=== PATIENT | female | born 1985 | race Hispanic/Latino ===

== ENCOUNTER 2020-03-12 10:17 | Inpatient (IN) | payer MEDICAID ==
[2020-03-12] MEDS ORDERED: LACTATED RINGERS 1,000 ML IV ONE (11:30)
[2020-03-12] MEDS ORDERED: LIDOCAINE (2%) 20 MG/1 ML VIAL 20 ML MDV INFILTRATI ONE (13:04)
[2020-03-12] MEDS ORDERED: MINERAL OIL 30 ML ORAL LIQD PO PRN (13:04)
[2020-03-12] MEDS ORDERED: TERBUTALINE 1 MG/1 ML INJ IVP PRN (13:04)
[2020-03-12] MEDS ORDERED: ePHEDrine SULFATE 50 MG/1 ML INJ IV PRN (13:04)
[2020-03-12] MEDS ORDERED: TERBUTALINE 1 MG/1 ML INJ SUB-Q PRN (13:04)
[2020-03-12 13:32] LABS: Hematocrit 27.8 % (30.3-42.9); Hemoglobin 9.4 gm/dl (10.1-14.3); Mean Corpuscular HGB Conc 34 % (30-34); Mean Corpuscular Volume 78 fl (79-97); Platelet Count 311 K/mm3 (140-440); Red Blood Count 3.58 M/mm3 (3.65-5.03); Red Cell Distribution Width 17.4 % (13.2-15.2)
[2020-03-12] MEDS ORDERED: OXYTOCIN 20 UNIT/1000ML DRIP 20 UNITS/1,000 ML BAG IV SCH (14:00)
[2020-03-12] MEDS ORDERED: OXYTOCIN DRIP 30 UNITS/500 ML BAG IV SCH (14:00)
[2020-03-12] MEDS: LACTATED RINGERS 1,000 ML IV SCH ×3 (14:00→19:07)
[2020-03-12] MEDS ORDERED: DEXMEDETOMIDINE 200 MCG/2 ML VIAL IV ONE (14:35)
--- NOTE | 2020-03-12 15:02 | Anesthesia Consultation ---
Anesthesia Consult and Med Hx Date of service: 03/12/20 - Airway Anesthetic Teeth Evaluation: Good ROM Head & Neck: Adequate Mental/Hyoid Distance: Adequate Mallampati Class: Class III Intubation Access Assessment: Probably Good - Pulmonary Exam CTA: Yes - Cardiac Exam Cardiac Exam: RRR - Pre-Operative Health Status ASA Pre-Surgery Classification: ASA2 Proposed Anesthetic Plan: Epidural, Spinal - Pulmonary Hx Smoking: No Hx Asthma: No Hx Sleep Apnea: No - Cardiovascular System Hx Hypertension: Yes (Prior to on baby asprin during the pregnacy) - Central Nervous System Hx Seizures: No Hx Psychiatric Problems: No - Gastrointestinal Hx Gastroesophageal Reflux Disease: No - Endocrine Hx Renal Disease: No Hx Insulin Dependent Diabetes: No Hx Non-Insulin Dependent Diabetes: No Hx Hypothyroidism: No Hx Hyperthyroidism: No - Hematic Hx Anemia: No Hx Sickle Cell Disease: No - Other Systems Hx Alcohol Use: No
[2020-03-12] MEDS ORDERED: NalbUPHINE 10 MG/1 ML INJ IV PRN (15:04)
[2020-03-12] MEDS ORDERED: diphenhydrAMINE 50 MG/ML VIAL IV PRN (15:04)
[2020-03-12] MEDS ORDERED: NALOXONE 2 MG/2 ML INJ IV PRN (15:04)
[2020-03-12] MEDS ORDERED: ONDANSETRON 4 MG/2 ML INJ IV PRN (15:04)
--- NOTE | 2020-03-12 15:04 | Progress Note ---
Labor Epidural - Labor Epidural Start Time: 14:37 Stop Time: 14:50 Performed by:: MARY ANN VERMA Procedure: Patient is requesting combined spinal epidural for labor and pain. H&P, labs were reviewed. All questions and concerns were answered. Informed consent was obtained. Timeout performed. Patient in sitting position on side of bed. Sterile prep and drape was performed. [3] mL 1% lidocaine skin wheal at L [3]-L [4]. 18-gauge Touhy epidural needle advanced to [id number] using air technique, [7.5cm]. 27-gauge spinal needle advanced [clear positive free- flowing] CSF. spinal dose of [Marcaine 3.75mg]. Epidural catheter advanced to [13] cm. Transient parathesia on R, [Negative] Aspiration, [negative] test dose. Sterile dressing applied. Patient tolerated procedure well.
[2020-03-12] MEDS ORDERED: fentaNYL-BUPIV 2 MCG/ML-0.125% 200 MCG/100 ML BAG EPIDURAL SCH (16:00)
--- NOTE | 2020-03-12 16:25 | History and Physical Report ---
History of Present Illness Date of examination: 03/12/20 Date of admission: 03/12/20 13:59 Chief complaint: I'm having contractions History of present illness: Pt is a 34 year old who presents with regular contractions at 39.1 weeks with EDC 03/18/20. Pt has had an uncomplicated course. She is GBS negative. Her labs are otherwise normal. Pt has a history of chronic hypertension but she has had no issues with blood pressure this . Past History Past Medical History: hypertension Past Surgical History: cholecystectomy Family/Genetic History: hypertension Social history: - Obstetrical History Expected Date of Delivery: 03/18/20 Actual Gestation: 39 Week(s) 1 Day(s) : 4 Para: 3 Number of Living Children: 3 Medications and Allergies Allergies Allergy/AdvReac Type Severity Reaction Status Date / Time latex Allergy Hives Verified 03/12/20 10:45 Active Meds: Active Medications Diphenhydramine HCl (Benadryl) 12.5 mg IV Q2H PRN PRN Reason: Itching Ephedrine Sulfate (Ephedrine Sulfate) 10 mg IV Q2M PRN PRN Reason: Hypotension Oxytocin/Sodium Chloride (Pitocin/Ns 20 Unit/1000ml Drip) 20 units in 1,000 mls @ 125 mls/hr IV DIRECT PARISH Oxytocin/Sodium Chloride (Pitocin/Ns 30 Unit/500ml) 30 units in 500 mls @ 1 mls/hr IV TITR PARISH; Protocol Lactated Ringer's (Lactated Ringers) 1,000 mls @ 125 mls/hr IV DIRECT PARISH Fentanyl/Bupivacaine/Sodium Chlor (Fentanyl-Bupiv 2 Mcg/Ml-0.125%) 200 mcg in 100 mls @ 12 mls/hr EPIDURAL TITR PARISH; Protocol Mineral Oil (Mineral Oil) 30 ml PO QHS PRN PRN Reason: Constipation Nalbuphine HCl (Nalbuphine) 2.5 mg IV Q2H PRN PRN Reason: Itching Naloxone HCl (Naloxone) 0.2 mg IV Q5M PRN PRN Reason: Respiratory sedation Ondansetron HCl (Zofran) 4 mg IV Q8H PRN PRN Reason: Nausea And Vomiting Terbutaline Sulfate (Brethine) 0.25 mg SUB-Q ONCE PRN PRN Reason: Hyperstimulation/Hypertonicity Terbutaline Sulfate (Brethine) 0.25 mg IVP ONCE PRN PRN Reason: Hyperstimulation/Hypertonicity Review of Systems All systems: negative Constitutional: fatigue Genitourinary: vaginal bleeding, contractions - Vital Signs Vital signs: Vital Signs Pulse Pulse Ox 102 H 100 03/12/20 14:29 03/12/20 14:29 Temp Pulse Resp BP Pulse Ox 98.2 F 86 22 102/53 98 03/12/20 14:34 03/12/20 16:14 03/12/20 14:34 03/12/20 16:14 03/12/20 16:11 - Physical Exam Breasts: Positive: deferred Cardiovascular: Regular rate, Normal S1, Normal S2 Lungs: Positive: Clear to auscultation, Normal air movement Abdomen: Positive: normal appearance, soft, normal bowel sounds. Negative: distention, tenderness Genitourinary (Female): Positive: normal external genitalia, normal perenium Vulva: both: normal Vagina: Positive: normal moisture. Negative: discharge Cervix: Negative: lesion, discharge Uterus: Positive: normal size, normal contour Adnexa: both: normal Anus/Rectum: Positive: normal perianal skin, heme negative. Negative: rectal mass, hemorrhoids Extremities: Deep Tendon Reflex Grade: Normal +2 - Obstetrical Cervical Dilatation: 4 Cervical Effacement Percentage: 80 station: -2 Uterine Contraction Frequency (min): 4 Uterine Contraction Pattern: Regular Uterine Tone Measurement Phase: Contraction Uterine Contraction Intensity: Moderate Results Result Diagrams: 03/12/20 13:00 Abnormal lab results 03/12/20 Range/Units 13:00 WBC 11.2 H (4.5-11.0) K/mm3 RBC 3.58 L (3.65-5.03) M/mm3 Hgb 9.4 L (10.1-14.3) gm/dl Hct 27.8 L (30.3-42.9) % MCV 78 L (79-97) fl MCH 26 L (28-32) pg RDW 17.4 H (13.2-15.2) % All other labs normal. Assessment and Plan IUP at 39.1 weeks in labor. Admit for labor. AROM when patient comfortable. Pt may have epidural. Anticipate .
[2020-03-12] MEDS ORDERED: BUPIVACAINE/PF (0.25%) 2.5 MG/ML 10 ML VIAL INFILTRATI ONE (17:15)
[2020-03-12] MEDS ORDERED: ACETAMINOPHEN 325 MG TAB PO ONE (21:14)
--- NOTE | 2020-03-12 22:46 | Procedure Note ---
OB Delivery Note - Delivery Date of Delivery: 03/12/20 Surgeon: ANA MILLAN - Vaginal Delivery presentation: vertex Delivery position: OA Intrapartum events: none Delivery augmentation: rupture of membranes, pitocin Delivery monitor: external FHT, external uterine Route of delivery: Delivery placenta: spontaneous Delivery cord: 3 umbilical vessels Delivery laceration: 2nd degree Delivery repair: vicryl Anesthesia: epidural Delivery comments: Viable female delivered over intact perineum without nuchal. Mouth and nose suctioned on field. Placenta delivered spontaneously and intact with 3vc. Laceration repaired with 2.0 vicryl. Pt tolerated procedure well. - Infant A at 1 minute: 8 at 5 minutes: 9 Infant Gender: Female (7 pounds 12 ounces)
[2020-03-13] MEDS ORDERED: LANOLIN/ZINC/DIMETHICONE (LANSINOH) 7 GM TP PRN (02:31)
[2020-03-13] MEDS ORDERED: ONDANSETRON 4 MG/2 ML INJ IV PRN (02:31)
[2020-03-13] MEDS ORDERED: MAGNESIUM HYDROXIDE (MOM) ORAL LIQD UDC PO PRN (02:31)
[2020-03-13] MEDS ORDERED: WITCH HAZEL/ GLYCERIN PAD TP PRN (02:31)
[2020-03-13] MEDS ORDERED: PROMETHAZINE 25 MG TAB PO PRN (02:31)
[2020-03-13] MEDS ORDERED: diphenhydrAMINE 25 MG CAP PO PRN (02:31)
[2020-03-13] MEDS ORDERED: ACETAMINOPHEN 325 MG TAB PO PRN (02:31)
[2020-03-13] MEDS: IBUPROFEN 600 MG TAB PO SCH ×4 (03:01→22:24)
[2020-03-13] MEDS: HYDROcodone/ACETAMINOPHEN 5-325 MG TAB PO PRN ×3 (05:00→20:40)
[2020-03-13] MEDS: DOCUSATE SODIUM 100 MG CAP PO SCH ×2 (09:59→22:24)
[2020-03-13] MEDS: PRENATAL VIT27-FE FUMARATE-FOLIC ACID VIT TAB PO SCH (09:59)
--- NOTE | 2020-03-13 12:12 | Post Anesthesia Evaluation ---
- Post Anesthesia Evaluation Patient Participated: Yes Airway Patent: Yes Stable Respiratory Function: Yes Nausea/Vomiting: No Temp > 96.8F: Yes Pain Manageable: Yes Adequeate Hydration: Yes Anesthesia Complications: No Block Receding Appropriately: Yes Patient on Ventilator: No
[2020-03-13 13:24] LABS: Hematocrit 23.9 % (30.3-42.9); Hemoglobin 7.6 gm/dl (10.1-14.3)
[2020-03-13] MEDS: FERROUS SULFATE 325 MG TAB PO SCH ×2 (16:10→22:22)
[2020-03-14] MEDS: IBUPROFEN 600 MG TAB PO SCH ×2 (05:54→11:45)
[2020-03-14] MEDS ORDERED: DIPHtheria,PERTUSSIS(ACELL),TETANUS VACCINE/PF 0.5 ML VIAL IM ONE (06:00)
[2020-03-14] MEDS: HYDROcodone/ACETAMINOPHEN 5-325 MG TAB PO PRN (08:21)
--- NOTE | 2020-03-14 09:12 | Progress Note ---
Subjective - Subjective Date of service: 03/14/20 Interval history: Pt is a 34 year old who presents with regular contractions at 39.1 weeks with EDC 03/18/20. Pt has had an uncomplicated course. She is GBS negative. Her labs are otherwise normal. Pt has a history of chronic hypert ension but she has had no issues with blood pressure this . Patient reports: appetite normal, voiding normally, pain well controlled, ambulating normally : doing well Objective - Vital Signs Latest vital signs: Vital Signs Temp Pulse Resp BP BP Pulse Ox 03/14/20 01:56 97.9 F 78 18 112/72 95 03/13/20 15:45 97.5 F L 103 H 20 126/75 03/13/20 12:47 97.8 F 88 20 115/51 Intake and Output 03/13/20 03/14/20 03/14/20 22:59 06:59 14:59 Intake Total 600 120 Balance 600 120 Intake: Oral 120 Intake, Free Water 480 120 Other: Total, Intake Amount 120 # Voids Indwelling Catheter 2 Void 1 1 - Labs Labs: Abnormal lab results 03/13/20 Range/Units 13:11 Hgb 7.6 L (10.1-14.3) gm/dl Hct 23.9 L (30.3-42.9) %
--- NOTE | 2020-03-14 09:14 | Discharge Summary ---
Providers - Providers Date of Admission: 03/12/20 13:59 Date of discharge: 03/14/20 Attending physician: ANA MILLAN Primary care physician: [employer]ER Hospitalization Reason for admission: active labor Delivery: Episiotomy: none Laceration: 2nd degree Other procedures: none complications: none Discharge diagnosis: IUP at term delivered baby: female Hospital course: unremarkable Condition at discharge: Good Disposition: DC-01 TO HOME OR SELFCARE Plan - Discharge Medications Prescriptions: Ferrous Sulfate [Feosol 325 MG tab] 325 mg PO BID #60 tablet Ibuprofen [Motrin] 800 mg PO Q8HR PRN #40 tablet PRN Reason: Pain, Moderate (4-6) HYDROcodone/APAP 5-325 [[place] 5/325] 1 each PO Q6HR PRN #20 tablet PRN Reason: Pain - Provider Discharge Summary Activity: routine, no sex for 6 weeks, no heavy lifting 4 weeks, no strenuous exercise Diet: routine Instructions: routine Additional instructions: [] Smoking cessation referral if applicable(refer to patient education folder for contact #) [] Refer to [facility] Booklet Call your doctor immediately for: * Fever > 100.5 * Heavy vaginal bleeding ( >1 pad per hour) * Severe persistent headache * Shortness of breath * Reddened, hot, painful area to leg or breast * Drainage or odor from incision. * Keep incision clean and dry at all times and follow doctor's instructions regarding bathing/showering - Follow up plan Follow up: ANA MILLAN MD [Staff Physician] - 6 Weeks
[2020-03-14] MEDS: FERROUS SULFATE 325 MG TAB PO SCH (11:13)
[2020-03-14] MEDS: DOCUSATE SODIUM 100 MG CAP PO SCH (11:13)
[2020-03-14] MEDS: PRENATAL VIT27-FE FUMARATE-FOLIC ACID VIT TAB PO SCH (11:14)
[2020-03-14 13:49] VITALS: BP 120/64
== END 2020-03-14 14:24 | disposition home or self-care (01) | DRG 774 ==
LOC: TRG 10:17 → LD 13:59 → OB 03-13 02:27
PROVIDERS: ADMIT Obstetrics & Gynecology; ATTEND Obstetrics & Gynecology
PROC: 10E0XZZ Delivery of Products of Conception, External Approach (ICD-10-PCS; principal; 2020-03-12)
PROC: 0KQM0ZZ Repair Perineum Muscle, Open Approach (ICD-10-PCS; 2020-03-12)
PROC: 3E0R3BZ Introduction of Anesthetic Agent into Spinal Canal, Percutaneous Approach (ICD-10-PCS; 2020-03-12)
PROC: 00HU33Z Insertion of Infusion Device into Spinal Canal, Percutaneous Approach (ICD-10-PCS; 2020-03-12)
PROC: 3E0234Z Introduction of Serum, Toxoid and Vaccine into Muscle, Percutaneous Approach (ICD-10-PCS; 2020-03-14)
DX: O10.92 Unspecified pre-existing hypertension complicating childbirth (principal); O70.1 Second degree perineal laceration during delivery; Z37.0 Single live birth; Z3A.39 39 weeks gestation of pregnancy; Z90.49 Acquired absence of other specified parts of digestive tract
CPT/HCPCS: 36415; 85014; 85018; 85027; 86850; 86900; 86901; G0378; J2405; J2590; J3490; J7120

== ENCOUNTER 2021-06-07 17:46 | Inpatient (IN) | payer MEDICAID ==
[~2021-06-07 17:46] MED LIST: NALOXONE 2 MG/2 ML INJ IV PRN
[2021-06-07] MEDS ORDERED: fentaNYL 100 MCG/2 ML INJ IV PRN (18:43)
[2021-06-07] MEDS ORDERED: NalbUPHINE 10 MG/1 ML INJ IV PRN (18:43)
[2021-06-07] MEDS ORDERED: miSOPROStol 200 MCG TAB PR PRN (18:43)
[2021-06-07] MEDS ORDERED: CARBOPROST TROMETHAMINE 250 MCG/1 ML INJ IM PRN (18:43)
[2021-06-07] MEDS ORDERED: OXYTOCIN 10 UNIT/1 ML INJ IM PRN (18:43)
[2021-06-07] MEDS ORDERED: LOPERAMIDE 2 MG CAP PO PRN (18:43)
[2021-06-07] MEDS ORDERED: METHYLERGONOVINE MALEATE 0.2 MG/ML VIAL IM PRN (18:43)
[2021-06-07] MEDS ORDERED: MINERAL OIL 30 ML ORAL LIQD PO PRN (18:43)
[2021-06-07] MEDS ORDERED: BUTORPHANOL 2 MG/1 ML INJ IV PRN ×2 (18:43)
[2021-06-07] MEDS ORDERED: TERBUTALINE 1 MG/1 ML INJ SUB-Q PRN (18:43)
[2021-06-07] MEDS ORDERED: LIDOCAINE (2%) 20 MG/1 ML VIAL 20 ML MDV INFILTRATI ONE (18:43)
[2021-06-07] MEDS ORDERED: ONDANSETRON 4 MG/2 ML INJ IV PRN (18:43)
[2021-06-07] MEDS ORDERED: OXYTOCIN DRIP 30 UNITS/500 ML BAG IV SCH ×2 (19:00)
[2021-06-07 19:02] LABS: Hematocrit 36.5 % (30.3-42.9); Hemoglobin 12.7 gm/dl (10.1-14.3); Mean Corpuscular HGB Conc 35 % (30-34); Mean Corpuscular Volume 96 fl (79-97); Platelet Count 237 K/mm3 (140-440); Red Blood Count 3.79 M/mm3 (3.65-5.03); Red Cell Distribution Width 14.1 % (13.2-15.2)
[2021-06-07] MEDS: LACTATED RINGERS 1,000 ML IV SCH ×3 (19:56→22:01)
--- NOTE | 2021-06-07 20:22 | History and Physical Report ---
History of Present Illness Date of examination: 06/07/21 Date of admission: 06/07/21 17:46 Chief complaint: I am here to be induced History of present illness: Patient is a 35-year-old 5 para 4 who presents for induction of labor at 39 weeks secondary to 1. morbid obesity 2. AMA and 3. history of gestational hypertension. Patient had uncomplicated course. She is GBS negative Past History Past Medical History: no pertinent history Past Surgical History: no surgical history Family/Genetic History: none Social history: - Obstetrical History Expected Date of Delivery: 06/14/21 Actual Gestation: 39 Week(s) 0 Day(s) : 5 Para: 4 Number of Living Children: 4 Medications and Allergies Allergies Allergy/AdvReac Type Severity Reaction Status Date / Time latex Allergy Hives Verified 03/12/20 10:45 Home Medications Medication Instructions Recorded Confirmed Last Taken Type HYDROcodone/APAP 5-325 [[place] 1 each PO Q6HR PRN #20 tablet 03/13/20 Unknown Rx 5/325] Ibuprofen [Motrin] 800 mg PO Q8HR PRN #40 tablet 03/13/20 Unknown Rx Ferrous Sulfate [Feosol 325 MG tab] 325 mg PO BID #60 tablet 03/14/20 Unknown Rx Active Meds: Active Medications Acetaminophen (Acetaminophen 325 Mg Tab) 650 mg PO Q4H PRN PRN Reason: Pain, Mild (1-3) Butorphanol Tartrate (Butorphanol 2 Mg/1 Ml Inj) 1 mg IV Q2H PRN PRN Reason: Pain, Moderate(4-6) LABOR PAIN Butorphanol Tartrate (Butorphanol 2 Mg/1 Ml Inj) 2 mg IV Q2H PRN PRN Reason: Pain , Severe (7-10) Carboprost Tromethamine (Carboprost Tromethamine 250 Mcg/1 Ml Inj) 250 mcg IM ONCE PRN PRN Reason: Uterine Bleeding Ephedrine Sulfate (Ephedrine Sulfate 50 Mg/1 Ml Inj) 10 mg IV Q2M PRN PRN Reason: Hypotension Fentanyl (Fentanyl 100 Mcg/2 Ml Inj) 100 mcg IV Q2H PRN PRN Reason: Pain,Severe (7-10) LABOR PAIN Oxytocin/Sodium Chloride (Pitocin/Ns 30 Unit/500ml) 30 units in 500 mls @ 2 mls/hr IV TITR PARISH; Protocol Last Admin: 06/07/21 19:55 Dose: 2 ml/hrs, 2 mls/hr Documented by: Lactated Ringer's (Lactated Ringers) 1,000 mls @ 125 mls/hr IV DIRECT PARISH Last Admin: 06/07/21 19:57 Dose: 999 mls/hr Documented by: Oxytocin/Sodium Chloride (Pitocin/Ns 30 Unit/500ml) 30 units in 500 mls @ 40 mls/hr IV TITR PARISH; Protocol Loperamide HCl (Loperamide 2 Mg Cap) 2 mg PO ONCE PRN PRN Reason: give with Hemabate Methylergonovine Maleate (Methylergonovine Maleate 0.2 Mg/Ml Vial) 0.2 mg IM ON CE PRN PRN Reason: Uterine Bleeding Mineral Oil (Mineral Oil 30 Ml Oral Liqd) 30 ml PO QHS PRN PRN Reason: Constipation Misoprostol (Misoprostol 200 Mcg Tab) 800 mcg NC ONCE PRN PRN Reason: Uterine Bleeding Nalbuphine HCl (Nalbuphine 10 Mg/1 Ml Inj) 10 mg IV Q2H PRN PRN Reason: Pain, Moderate (4-6) Ondansetron HCl (Ondansetron 4 Mg/2 Ml Inj) 4 mg IV Q8H PRN PRN Reason: Nausea And Vomiting Oxytocin (Oxytocin 10 Unit/1 Ml Inj) 10 unit IM ONCE PRN PRN Reason: Uterine Bleeding Terbutaline Sulfate (Terbutaline 1 Mg/1 Ml Inj) 0.25 mg SUB-Q ONCE PRN PRN Reason: Hyperstimulation/Hypertonicity Review of Systems All systems: negative Genitourinary: deferred, contractions - Vital Signs Vital signs: Vital Signs Pulse Pulse Ox 90 100 06/07/21 18:13 06/07/21 18:13 Temp Pulse Resp BP Pulse Ox 98.2 F 81 18 121/57 98 06/07/21 19:15 06/07/21 20:12 06/07/21 19:15 06/07/21 20:04 06/07/21 20:12 - Physical Exam Breasts: Cardiovascular: Regular rate, Normal S1, Normal S2 Lungs: Positive: Clear to auscultation, Normal air movement Abdomen: Positive: normal appearance, soft, normal bowel sounds. Negative: distention, tenderness Genitourinary (Female): Positive: normal external genitalia, normal perenium Vulva: both: normal Vagina: Positive: normal moisture. Negative: discharge Cervix: Negative: lesion, discharge Uterus: Positive: normal size, normal contour Adnexa: both: normal Anus/Rectum: Positive: normal perianal skin, heme negative. Negative: rectal mass, hemorrhoids Extremities: Deep Tendon Reflex Grade: Normal +2 - Obstetrical FHR: auscultation normal Cervical Dilatation: 2 Cervical Effacement Percentage: 50 station: -2 Uterine Contraction Pattern: Regular Uterine Tone Measurement Phase: Contraction Uterine Contraction Intensity: Moderate Results Result Diagrams: 06/07/21 18:20 Abnormal lab results 06/07/21 Range/Units 18:20 MCH 34 H (28-32) pg MCHC 35 H (30-34) % All other labs normal. Assessment and Plan IUP at 39 weeks for induction of labor. Will admit for same. We will begin Pitocin for labor progression. Anticipate . Patient is GBS negative does not need prophylaxis for same.
[2021-06-07] MEDS ORDERED: CALCIUM CARBONATE 500 MG TAB CHEW PO ONE (21:22)
--- NOTE | 2021-06-07 22:13 | Anesthesia Consultation ---
Anesthesia Consult and Med Hx Date of service: 06/07/21 - Airway Anesthetic Teeth Evaluation: Poor ROM Head & Neck: Adequate Mental/Hyoid Distance: Adequate Mallampati Class: Class III Intubation Access Assessment: Probably Good - Pulmonary Exam CTA: Yes - Cardiac Exam Cardiac Exam: RRR - Pre-Operative Health Status ASA Pre-Surgery Classification: ASA3 Proposed Anesthetic Plan: Epidural - Pulmonary Hx Smoking: No Hx Asthma: No Hx Respiratory Symptoms: No SOB: No COPD: No Home Oxygen Therapy: No Hx Pneumonia: No Hx Sleep Apnea: No - Cardiovascular System Hx Hypertension: Yes Hx Coronary Artery Disease: No Hx Heart Attack/AMI: No Hx Angina: No Hx Percutaneous Transluminal Coronary Angioplasty (PTCA): No Hx Cardia Arrhythmia: No Hx Pacemaker: No Hx Internal Defibrillator: No Hx Valvular Heart Disease: No Hx Heart Murmur: No Hx Peripheral Vascular Disease: No - Central Nervous System Hx Neuromuscular Disorder: No Hx Seizures: No CVA: No Hx Back Pain: Yes Hx Psychiatric Problems: No - Gastrointestinal Hx Ulcer: No Hx Gastroesophageal Reflux Disease: No - Endocrine Hx Renal Disease: No Hx End Stage Renal Disease: No Hx Cirrhosis: No Hx Liver Disease: No Hx Insulin Dependent Diabetes: No Hx Non-Insulin Dependent Diabetes: No Hx Thyroid Disease: No Hx Hypothyroidism: No Hx Hyperthyroidism: No - Hematic Hx Anemia: No Hx Sickle Cell Disease: No - Other Systems Hx Alcohol Use: No Hx Substance Use: No Hx Cancer: No Hx Obesity: Yes
[2021-06-07] MEDS: fentaNYL-BUPIV 2 MCG/ML-0.125% 200 MCG/100 ML BAG EPIDURAL SCH (23:25)
--- NOTE | 2021-06-07 23:44 | Progress Note ---
Labor Epidural - Labor Epidural Start Time: 22:38 Stop Time: 22:55 Performed by:: GINA TURK Procedure: Patient is requesting a laboring epidural for laboring pain. Patient IDed, H&P reviewed, all questions and concerns were answered, and consent was signed. Timeout was performed at bedside. Patient in sitting position. Sterile prep and drape was performed. [3] ml of 1% lidocaine skin wheal at L[3]- L [4]. 18- gauge Brighter Future Challenge epidural needle was advanced to loss of resistance with saline technique 9cm. Negative CSF negative blood. Epidural catheter advanced to [12] centimeters. [NEGATIVE] Aspiration [NEGATIVE] test dose. Sterile dressing applied. Patient tolerated procedure.
[2021-06-07] MEDS ORDERED: NALOXONE 2 MG/2 ML INJ IV PRN (23:50)
[2021-06-08] MEDS ORDERED: ePHEDrine SULFATE 50 MG/1 ML INJ IV PRN
[2021-06-08] MEDS: ePHEDrine SULFATE 50 MG/1 ML INJ IV PRN ×2 (00:24→00:29)
[2021-06-08] MEDS: ACETAMINOPHEN 325 MG TAB PO PRN ×2 (00:25→05:59)
[2021-06-08] MEDS: LACTATED RINGERS 1,000 ML IV SCH ×2 (00:27→06:02)
[2021-06-08] MEDS ORDERED: FAMOTIDINE 20 MG/2 ML INJ IV ONE (05:30)
[2021-06-08] MEDS: fentaNYL-BUPIV 2 MCG/ML-0.125% 200 MCG/100 ML BAG EPIDURAL SCH ×2 (06:45→17:33)
--- NOTE | 2021-06-08 07:59 | Progress Note ---
Assessment and Plan IUP at 39 weeks here for induction of labor. AROM this am for clear fluid. Pt is now 5 cm. Continue with induction. Anticipate . Subjective - Subjective Date of service: 06/08/21 Interval history: Patient is a 35-year-old 5 para 4 who presents for induction of labor at 39 weeks secondary to 1. morbid obesity 2. AMA and 3. history of gestational hypertension. Patient had uncomplicated course. She is GBS negative Patient reports: contractions Objective - Vital Signs Vital Signs: Vital Signs - 12hr 06/07/21 06/07/21 06/07/21 19:59 20:01 20:04 Temperature Pulse Rate 76 86 76 Blood Pressure 113/74 121/57 O2 Sat by Pulse 99 98 Oximetry 06/07/21 06/07/21 06/07/21 20:12 20:16 20:17 Temperature Pulse Rate 81 68 72 Blood Pressure 113/55 O2 Sat by Pulse 98 98 Oximetry 06/07/21 06/07/21 06/07/21 20:22 20:27 20:31 Temperature Pulse Rate 76 71 88 Blood Pressure 120/58 O2 Sat by Pulse 99 99 Oximetry 06/07/21 06/07/21 06/07/21 20:32 20:37 20:42 Temperature Pulse Rate 89 80 74 Blood Pressure O2 Sat by Pulse 97 99 98 Oximetry 06/07/21 06/07/21 06/07/21 20:47 20:52 20:57 Temperature Pulse Rate 81 79 86 Blood Pressure 122/68 O2 Sat by Pulse 98 98 98 Oximetry 06/07/21 06/07/21 06/07/21 21:02 21:09 21:14 Temperature Pulse Rate 82 85 80 Blood Pressure 138/86 O2 Sat by Pulse 97 99 98 Oximetry 06/07/21 06/07/21 06/07/21 21:16 21:19 21:24 Temperature Pulse Rate 75 84 76 Blood Pressure 107/52 O2 Sat by Pulse 97 97 Oximetry 06/07/21 06/07/21 06/07/21 21:29 21:31 21:34 Temperature Pulse Rate 80 78 74 Blood Pressure 103/58 O2 Sat by Pulse 97 98 Oximetry 06/07/21 06/07/21 06/07/21 21:39 21:44 21:46 Temperature Pulse Rate 72 74 75 Blood Pressure 105/64 O2 Sat by Pulse 98 98 Oximetry 06/07/21 06/07/21 06/07/21 21:49 21:57 22:02 Temperature Pulse Rate 81 72 75 Blood Pressure 128/62 O2 Sat by Pulse 98 98 99 Oximetry 06/07/21 06/07/21 06/07/21 22:07 22:12 22:17 Temperature Pulse Rate 75 77 76 Blood Pressure O2 Sat by Pulse 97 97 97 Oximetry 06/07/21 06/07/21 06/07/21 22:22 22:27 22:32 Temperature Pulse Rate 69 82 78 Blood Pressure O2 Sat by Pulse 97 97 98 Oximetry 06/07/21 06/07/21 06/07/21 22:39 22:43 22:44 Temperature Pulse Rate 81 86 87 Blood Pressure 129/63 O2 Sat by Pulse 98 99 Oximetry 06/07/21 06/07/21 06/07/21 22:45 22:46 22:49 Temperature Pulse Rate 78 85 86 Blood Pressure 130/64 128/62 O2 Sat by Pulse 81 L 95 Oximetry 06/07/21 06/07/21 06/07/21 22:51 22:53 22:54 Temperature Pulse Rate 76 82 68 Blood Pressure 119/65 114/61 O2 Sat by Pulse 74 L 76 L Oximetry 06/07/21 06/07/21 06/07/21 22:55 22:57 22:59 Temperature Pulse Rate 88 95 H 82 Blood Pressure 121/71 123/72 O2 Sat by Pulse 97 Oximetry 06/07/21 06/07/21 06/07/21 23:01 23:03 23:04 Temperature Pulse Rate 91 H 77 81 Blood Pressure 131/58 117/57 O2 Sat by Pulse 98 Oximetry 06/07/21 06/07/21 06/07/21 23:05 23:07 23:09 Temperature Pulse Rate 86 74 71 Blood Pressure 112/54 112/54 96/51 O2 Sat by Pulse 97 Oximetry 06/07/21 06/07/21 06/07/21 23:11 23:13 23:14 Temperature Pulse Rate 88 70 73 Blood Pressure 96/60 99/52 O2 Sat by Pulse 97 Oximetry 06/07/21 06/07/21 06/07/21 23:15 23:17 23:19 Temperature Pulse Rate 74 67 64 Blood Pressure 108/54 103/51 107/53 O2 Sat by Pulse 97 Oximetry 06/07/21 06/07/21 06/07/21 23:21 23:23 23:24 Temperature Pulse Rate 75 70 71 Blood Pressure 110/55 101/51 O2 Sat by Pulse 98 Oximetry 06/07/21 06/07/21 06/07/21 23:25 23:27 23:29 Temperature Pulse Rate 83 61 85 Blood Pressure 102/60 109/55 116/55 O2 Sat by Pulse 98 Oximetry 06/07/21 06/07/21 06/07/21 23:31 23:33 23:34 Temperature Pulse Rate 68 80 71 Blood Pressure 110/59 102/50 O2 Sat by Pulse 96 Oximetry 06/07/21 06/07/21 06/07/21 23:39 23:44 23:49 Temperature Pulse Rate 68 79 65 Blood Pressure 99/54 O2 Sat by Pulse 98 97 94 Oximetry 06/07/21 06/07/21 06/08/21 23:54 23:59 00:03 Temperature Pulse Rate 76 70 70 Blood Pressure 94/55 O2 Sat by Pulse 96 96 Oximetry 06/08/21 06/08/21 06/08/21 00:04 00:05 00:09 Temperature Pulse Rate 76 75 70 Blood Pressure O2 Sat by Pulse 97 94 97 Oximetry 06/08/21 06/08/21 06/08/21 00:11 00:14 00:15 Temperature Pulse Rate 74 73 70 Blood Pressure 82/53 84/46 O2 Sat by Pulse 97 Oximetry 06/08/21 06/08/21 06/08/21 00:18 00:19 00:22 Temperature Pulse Rate 63 64 68 Blood Pressure 89/52 O2 Sat by Pulse 94 96 Oximetry 06/08/21 06/08/21 06/08/21 00:24 00:25 00:26 Temperature Pulse Rate 84 68 96 H Blood Pressure 93/54 95/57 O2 Sat by Pulse 97 Oximetry 06/08/21 06/08/21 06/08/21 00:29 00:31 00:32 Temperature Pulse Rate 77 90 71 Blood Pressure 104/51 94/49 97/50 O2 Sat by Pulse 98 Oximetry 06/08/21 06/08/21 06/08/21 00:34 00:35 00:39 Temperature 98.2 F Pulse Rate 71 66 81 Blood Pressure 100/52 106/59 O2 Sat by Pulse 98 98 Oximetry 06/08/21 06/08/21 06/08/21 00:41 00:44 00:46 Temperature Pulse Rate 79 81 71 Blood Pressure 101/55 103/58 O2 Sat by Pulse 96 Oximetry 06/08/21 06/08/21 06/08/21 00:49 00:51 00:54 Temperature Pulse Rate 79 73 76 Blood Pressure 106/53 O2 Sat by Pulse 97 96 Oximetry 06/08/21 06/08/21 06/08/21 00:56 00:59 01:01 Temperature Pulse Rate 75 70 74 Blood Pressure 105/55 107/52 O2 Sat by Pulse 96 Oximetry 06/08/21 06/08/21 06/08/21 01:04 01:06 01:09 Temperature Pulse Rate 72 71 74 Blood Pressure 96/51 O2 Sat by Pulse 95 95 Oximetry 06/08/21 06/08/21 06/08/21 01:11 01:14 01:16 Temperature Pulse Rate 67 69 65 Blood Pressure 95/54 94/52 O2 Sat by Pulse 96 Oximetry 06/08/21 06/08/21 06/08/21 01:19 01:22 01:24 Temperature Pulse Rate 77 71 76 Blood Pressure 111/53 O2 Sat by Pulse 97 97 Oximetry 06/08/21 06/08/21 06/08/21 01:26 01:29 01:30 Temperature Pulse Rate 70 69 68 Blood Pressure 102/53 O2 Sat by Pulse 95 94 Oximetry 06/08/21 06/08/21 06/08/21 01:31 01:34 01:36 Temperature Pulse Rate 67 67 62 Blood Pressure 92/52 94/52 O2 Sat by Pulse 95 Oximetry 06/08/21 06/08/21 06/08/21 01:38 01:39 01:41 Temperature Pulse Rate 64 71 62 Blood Pressure 92/48 O2 Sat by Pulse 94 95 Oximetry 06/08/21 06/08/21 06/08/21 01:43 01:44 01:46 Temperature Pulse Rate 72 69 69 Blood Pressure 98/51 O2 Sat by Pulse 94 94 Oximetry 06/08/21 06/08/21 06/08/21 01:49 01:52 01:54 Temperature Pulse Rate 67 86 86 Blood Pressure 130/56 O2 Sat by Pulse 94 96 Oximetry 06/08/21 06/08/21 06/08/21 01:56 01:59 02:01 Temperature Pulse Rate 75 70 66 Blood Pressure 101/52 99/52 O2 Sat by Pulse 94 95 94 Oximetry 06/08/21 06/08/21 06/08/21 02:04 02:06 02:07 Temperature Pulse Rate 72 63 79 Blood Pressure 99/48 O2 Sat by Pulse 94 94 Oximetry 06/08/21 06/08/21 06/08/21 02:09 02:12 02:14 Temperature Pulse Rate 66 64 67 Blood Pressure 97/50 O2 Sat by Pulse 95 95 Oximetry 06/08/21 06/08/21 06/08/21 02:16 02:19 02:21 Temperature Pulse Rate 67 69 69 Blood Pressure 99/56 93/52 O2 Sat by Pulse 94 95 94 Oximetry 06/08/21 06/08/21 06/08/21 02:24 02:26 02:29 Temperature Pulse Rate 71 65 69 Blood Pressure 98/52 O2 Sat by Pulse 96 95 Oximetry 06/08/21 06/08/21 06/08/21 02:31 02:34 02:36 Temperature Pulse Rate 82 69 62 Blood Pressure 103/52 90/47 O2 Sat by Pulse 95 Oximetry 06/08/21 06/08/21 06/08/21 02:39 02:41 02:44 Temperature Pulse Rate 70 68 70 Blood Pressure 92/55 O2 Sat by Pulse 95 94 95 Oximetry 06/08/21 06/08/21 06/08/21 02:46 02:48 02:49 Temperature Pulse Rate 65 69 68 Blood Pressure 93/51 O2 Sat by Pulse 94 95 Oximetry 06/08/21 06/08/21 06/08/21 02:51 02:54 02:57 Temperature Pulse Rate 70 72 70 Blood Pressure 92/51 125/62 O2 Sat by Pulse 94 Oximetry 06/08/21 06/08/21 06/08/21 02:59 03:02 03:04 Temperature Pulse Rate 85 77 74 Blood Pressure 111/57 O2 Sat by Pulse 97 98 Oximetry 06/08/21 06/08/21 06/08/21 03:06 03:09 03:11 Temperature Pulse Rate 72 69 68 Blood Pressure 114/56 103/56 O2 Sat by Pulse 94 95 Oximetry 06/08/21 06/08/21 06/08/21 03:14 03:16 03:19 Temperature Pulse Rate 65 75 67 Blood Pressure 90/55 O2 Sat by Pulse 95 94 95 Oximetry 06/08/21 06/08/21 06/08/21 03:21 03:24 03:26 Temperature Pulse Rate 71 65 58 L Blood Pressure 94/54 94/54 O2 Sat by Pulse 95 93 Oximetry 06/08/21 06/08/21 06/08/21 03:29 03:31 03:34 Temperature Pulse Rate 70 63 68 Blood Pressure 109/59 O2 Sat by Pulse 95 93 95 Oximetry 06/08/21 06/08/21 06/08/21 03:36 03:37 03:39 Temperature Pulse Rate 64 64 66 Blood Pressure 97/52 O2 Sat by Pulse 93 95 Oximetry 06/08/21 06/08/21 06/08/21 03:41 03:42 03:44 Temperature Pulse Rate 66 61 63 Blood Pressure 99/57 O2 Sat by Pulse 94 96 Oximetry 06/08/21 06/08/21 06/08/21 03:46 03:47 03:49 Temperature Pulse Rate 66 64 68 Blood Pressure 93/53 O2 Sat by Pulse 94 95 Oximetry 06/08/21 06/08/21 06/08/21 03:51 03:54 03:57 Temperature Pulse Rate 68 68 66 Blood Pressure 96/55 97/52 O2 Sat by Pulse 94 Oximetry 06/08/21 06/08/21 06/08/21 03:59 04:01 04:04 Temperature Pulse Rate 71 61 82 Blood Pressure 94/52 O2 Sat by Pulse 94 95 Oximetry 06/08/21 06/08/21 06/08/21 04:06 04:09 04:11 Temperature Pulse Rate 72 74 75 Blood Pressure 112/57 118/60 O2 Sat by Pulse 98 Oximetry 06/08/21 06/08/21 06/08/21 04:14 04:16 04:19 Temperature Pulse Rate 69 86 79 Blood Pressure 112/64 O2 Sat by Pulse 98 98 Oximetry 06/08/21 06/08/21 06/08/21 04:21 04:24 04:27 Temperature Pulse Rate 71 80 72 Blood Pressure 114/68 116/59 O2 Sat by Pulse 98 Oximetry 06/08/21 06/08/21 06/08/21 04:29 04:34 04:39 Temperature Pulse Rate 69 78 68 Blood Pressure O2 Sat by Pulse 97 98 98 Oximetry 06/08/21 06/08/2106/08/21 04:44 04:46 04:49 Temperature Pulse Rate 76 70 82 Blood Pressure 112/72 O2 Sat by Pulse 98 97 Oximetry 06/08/21 06/08/21 06/08/21 04:54 04:59 05:01 Temperature Pulse Rate 76 75 84 Blood Pressure 118/80 O2 Sat by Pulse 97 100 Oximetry 06/08/21 06/08/21 06/08/21 05:04 05:09 05:14 Temperature Pulse Rate 89 76 79 Blood Pressure O2 Sat by Pulse 98 98 98 Oximetry 06/08/21 06/08/21 06/08/21 05:16 05:19 05:24 Temperature Pulse Rate 71 83 82 Blood Pressure 112/66 O2 Sat by Pulse 99 96 Oximetry 06/08/21 06/08/21 06/08/21 05:28 05:29 05:31 Temperature Pulse Rate 82 74 88 Blood Pressure 119/75 O2 Sat by Pulse 94 97 Oximetry 06/08/21 06/08/21 06/08/21 05:34 05:39 05:44 Temperature Pulse Rate 79 74 69 Blood Pressure O2 Sat by Pulse 98 98 98 Oximetry 06/08/21 06/08/21 06/08/21 05:46 05:49 05:54 Temperature Pulse Rate 68 68 78 Blood Pressure 123/65 O2 Sat by Pulse 100 97 Oximetry 06/08/21 06/08/21 06/08/21 05:58 06:02 06:07 Temperature Pulse Rate 134 H 75 67 Blood Pressure 127/61 O2 Sat by Pulse 82 L 99 100 Oximetry 06/08/21 06/08/21 06/08/21 06:12 06:16 06:17 Temperature Pulse Rate 80 70 79 Blood Pressure 126/72 O2 Sat by Pulse 99 100 Oximetry 06/08/21 06/08/21 06/08/21 06:22 06:27 06:32 Temperature Pulse Rate 75 75 85 Blood Pressure 126/69 O2 Sat by Pulse 100 99 99 Oximetry 06/08/21 06/08/21 06/08/21 06:37 06:42 06:47 Temperature Pulse Rate 73 64 66 Blood Pressure O2 Sat by Pulse 99 99 98 Oximetry 06/08/21 06/08/21 06/08/21 06:52 06:57 07:02 Temperature Pulse Rate 68 70 72 Blood Pressure 121/70 O2 Sat by Pulse 99 99 98 Oximetry 06/08/21 06/08/21 06/08/21 07:07 07:12 07:16 Temperature Pulse Rate 72 70 64 Blood Pressure 120/69 O2 Sat by Pulse 99 98 Oximetry 06/08/21 06/08/21 06/08/21 07:17 07:22 07:27 Temperature Pulse Rate 64 67 70 Blood Pressure O2 Sat by Pulse 97 97 97 Oximetry 06/08/21 06/08/21 06/08/21 07:32 07:37 07:42 Temperature Pulse Rate 64 85 86 Blood Pressure 123/61 O2 Sat by Pulse 97 98 98 Oximetry 06/08/21 06/08/21 07:47 07:52 Temperature Pulse Rate 78 77 Blood Pressure 140/86 O2 Sat by Pulse 97 99 Oximetry - Exam Breasts: deferred Cardiovascular: Regular rate, Normal S1, Normal S2 Lungs: Clear to auscultation, Normal air movement Abdomen: Present: normal appearance, soft, normal bowel sounds Vulva: both: normal Uterus: Present: normal, firm FHR: auscultation normal Cervical Dilatation: 5 Cervical Effacement Percentage: 60 station: -3 Uterine Contraction Pattern: Regular Uterine Contraction Intensity: Moderate Deep Tendon Reflex Grade: Normal +2 - Labs Labs: Abnormal Labs 06/07/21 18:20 MCH 34 H MCHC 35 H Laboratory Results - last 24 hr 06/07/21 06/07/21 06/07/21 18:20 18:20 18:20 WBC 9.4 RBC 3.79 Hgb 12.7 Hct 36.5 MCV 96 MCH 34 H MCHC 35 H RDW 14.1 Plt Count 237 Syphilis IgG Antibody Nonreactive Blood Type O POSITIVE Antibody Screen Negative
--- NOTE | 2021-06-08 22:10 | Procedure Note ---
OB Delivery Note - Delivery Date of Delivery: 06/08/21 Surgeon: ANA MILLAN Estimated blood loss: 200cc - Vaginal Delivery presentation: vertex Delivery position: OA Intrapartum events: mult.variable deceleratio Delivery induction: oxytocin Delivery augmentation: rupture of membranes Delivery monitor: external FHT, external uterine Route of delivery: Delivery placenta: spontaneous Delivery cord: nuchal cord, 3 umbilical vessels Episiotomy: none Delivery laceration: none Delivery repair: vicryl Anesthesia: epidural Delivery comments: Viable female delivered over intact perineum with 3 pushes. Nuchal cord x1 easily reduced on the field. Apgars were 8 and 9 weight 3240 g / 7 pounds 2 ounces. Infant had spontaneous cry was placed on maternal abdomen. Cord was clamped and cut when done pulsating. Placenta was delivered spontaneously and intact with three-vessel cord. There were no lacerations noted. Excellent hemostasis. Patient tolerated procedure well. - B at 1 minute: 8 at 5 minutes: 9 Infant Gender: Female
[2021-06-08] MEDS ORDERED: MAGNESIUM HYDROXIDE (MOM) ORAL LIQD UDC PO PRN (23:05)
[2021-06-08] MEDS ORDERED: LANOLIN/ZINC/DIMETHICONE (LANSINOH) 7 GM TP PRN (23:05)
[2021-06-08] MEDS ORDERED: diphenhydrAMINE 25 MG CAP PO PRN (23:05)
[2021-06-08] MEDS ORDERED: ONDANSETRON 4 MG/2 ML INJ IV PRN (23:05)
[2021-06-08] MEDS ORDERED: PROMETHAZINE 25 MG TAB PO PRN (23:05)
[2021-06-08] MEDS ORDERED: WITCH HAZEL/ GLYCERIN PAD TP PRN (23:05)
[2021-06-08] MEDS ORDERED: PROMETHAZINE 25 MG RECT SUPP PR PRN (23:05)
[2021-06-08] MEDS: HYDROcodone/ACETAMINOPHEN 5-325 MG TAB PO PRN (23:41)
[2021-06-08] MEDS: IBUPROFEN 600 MG TAB PO SCH (23:41)
[2021-06-08] MEDS ORDERED: NALOXONE 2 MG/2 ML INJ IV PRN (23:50)
[2021-06-09] MEDS: DOCUSATE SODIUM 100 MG CAP PO SCH (09:34)
[2021-06-09] MEDS: HYDROcodone/ACETAMINOPHEN 5-325 MG TAB PO PRN (09:34)
[2021-06-09] MEDS: PRENATAL VIT27-FE FUMARATE-FOLIC ACID VIT TAB PO SCH (09:36)
[2021-06-09] MEDS: IBUPROFEN 600 MG TAB PO SCH (14:12)
[2021-06-09 16:53] LABS: Hematocrit 33.7 % (30.3-42.9); Hemoglobin 11.5 gm/dl (10.1-14.3)
[2021-06-10] MEDS: DOCUSATE SODIUM 100 MG CAP PO SCH ×2 (00:59→11:33)
[2021-06-10] MEDS: IBUPROFEN 600 MG TAB PO SCH ×2 (00:59→11:32)
--- NOTE | 2021-06-10 01:01 | Discharge Summary ---
Providers - Providers Date of Admission: 06/07/21 17:46 Date of discharge: 06/10/21 Attending physician: ANA MILLAN Primary care physician: ANA MILLAN Hospitalization Reason for admission: induction of labor Delivery: Laceration: none complications: none Discharge diagnosis: IUP at term delivered [place] baby: female Hospital course: pt tested positive for covid Condition at discharge: Stable Disposition: 01 HOME / SELF CARE / HOMELESS - Discharge Diagnoses (1) Vaginal delivery Status: Acute (2) COVID-19 affecting childbirth Status: Acute Plan - Discharge Medications Prescriptions: Ibuprofen [Motrin] 800 mg PO Q8HR PRN #40 tablet PRN Reason: Pain, Mild (1-3) - Provider Discharge Summary Activity: routine, no sex for 6 weeks, no heavy lifting 4 weeks, no strenuous exercise Diet: routine Instructions: routine Additional instructions: [] Smoking cessation referral if applicable(refer to patient education folder for contact #) [] Refer to [facility]'s [facility] Booklet Call your doctor immediately for: * Fever > 100.5 * Heavy vaginal bleeding ( >1 pad per hour) * Severe persistent headache * Shortness of breath * Reddened, hot, painful area to leg or breast * Drainage or odor from incision. * Keep incision clean and dry at all times and follow doctor's instructions regarding bathing/showering - Follow up plan Follow up: ANA MILLAN MD [Primary Care Provider] - 6 Weeks
[2021-06-10] MEDS: PRENATAL VIT27-FE FUMARATE-FOLIC ACID VIT TAB PO SCH (11:33)
[2021-06-10 14:48] VITALS: BP 130/58
== END 2021-06-10 15:50 | disposition home or self-care (01) | DRG 774 ==
LOC: LD 17:46 → OB 06-08 23:57
PROVIDERS: ADMIT Obstetrics & Gynecology; ATTEND Obstetrics & Gynecology
PROC: 10E0XZZ Delivery of Products of Conception, External Approach (ICD-10-PCS; principal; 2021-06-08)
PROC: 10907ZC Drainage of Amniotic Fluid, Therapeutic from Products of Conception, Via Natural or Artificial Opening (ICD-10-PCS; 2021-06-08)
PROC: 3E0R3BZ Introduction of Anesthetic Agent into Spinal Canal, Percutaneous Approach (ICD-10-PCS; 2021-06-08)
PROC: 00HU33Z Insertion of Infusion Device into Spinal Canal, Percutaneous Approach (ICD-10-PCS; 2021-06-08)
PROC: 3E033VJ Introduction of Other Hormone into Peripheral Vein, Percutaneous Approach (ICD-10-PCS; 2021-06-08)
DX: O98.52 Other viral diseases complicating childbirth (principal); O69.81X0 Labor and delivery complicated by cord around neck, without compression, not applicable or unspecified; O10.92 Unspecified pre-existing hypertension complicating childbirth; Z37.0 Single live birth; Z3A.39 39 weeks gestation of pregnancy; Z91.040 Latex allergy status; O99.214 Obesity complicating childbirth; E66.01 Morbid (severe) obesity due to excess calories; U07.1 COVID-19; O76 Abnormality in fetal heart rate and rhythm complicating labor and delivery
CPT/HCPCS: 36415; 85014; 85018; 85027; 86592; 86850; 86900; 86901; G0378; J2405; J2590; J7120; U0003